=== PATIENT | female | born 1985 | race Caucasian/White ===

== ENCOUNTER 2018-07-19 00:50 | Emergency (ER) | payer SELFPAY ==
[~2018-07-19] VITALS: Ht 167.6 cm; Wt 143.8 kg
[~2018-07-19 00:50] MED LIST: FLEXERIL10 MG PO; HYDROCODONE BIT1 T11 PO; LEVAQUIN750 M1 PO; MOTRIN800 MG PO; PREDNISONE20 M1 PO; VENTOLIN H0.09 MG/AC INH; ZITHROMAX250 MG PO; ZYRTEC10 MG PO
[2018-07-19] MEDS ORDERED: LIDEX 0.05% CRE15 GM T (01:14)
== END 2018-07-19 01:26 | disposition home or self-care (01) ==
LOC: ED 00:50
PROVIDERS: Physician Assistant
DX: R21 Rash and other nonspecific skin eruption (principal); F17.200 Nicotine dependence, unspecified, uncomplicated; Z88.1 Allergy status to other antibiotic agents; Z88.0 Allergy status to penicillin; Z88.2 Allergy status to sulfonamides; Z88.8 Allergy status to other drugs, medicaments and biological substances

== ENCOUNTER 2018-12-26 16:36 | Emergency (ER) | payer BC ==
[~2018-12-26] VITALS: Ht 167.6 cm; Wt 141.1 kg
[~2018-12-26 16:36] MED LIST changes: +LIDEX 0.05% CRE15 GM T
[2018-12-26] MEDS ORDERED: ZITHROMAX250 MG PO (17:39)
[2019-01-09] MEDS ORDERED: ROBAXIN500 M1 PO (14:26)
[2019-01-09] MEDS ORDERED: PREDNISONE20 M1 PO (14:26)
== END 2018-12-26 17:50 | disposition home or self-care (01) ==
LOC: ED 16:36
DX: H92.02 Otalgia, left ear (principal); R51 Headache; J34.89 Other specified disorders of nose and nasal sinuses; K08.89 Other specified disorders of teeth and supporting structures; Z88.1 Allergy status to other antibiotic agents; Z88.0 Allergy status to penicillin; Z88.2 Allergy status to sulfonamides; Z88.6 Allergy status to analgesic agent; Z96.22 Myringotomy tube(s) status

== ENCOUNTER 2020-01-08 07:33 | Emergency (ER) | payer SELFPAY ==
[~2020-01-08 07:33] MED LIST changes: +ROBAXIN500 M1 PO
[2020-01-08] MEDS ORDERED: LEVAQUIN750 M1 PO (08:00)
== END 2020-01-08 08:03 | disposition home or self-care (01) ==
LOC: ED 07:33
DX: H66.92 Otitis media, unspecified, left ear (principal); R51 Headache; Z88.1 Allergy status to other antibiotic agents; Z88.0 Allergy status to penicillin; Z88.2 Allergy status to sulfonamides; Z88.8 Allergy status to other drugs, medicaments and biological substances; Z79.899 Other long term (current) drug therapy; Z79.2 Long term (current) use of antibiotics

== ENCOUNTER 2021-10-20 23:44 | Emergency (ER) | payer BC ==
[~2021-10-20] VITALS: Ht 167.6 cm; Wt 158.8 kg
[2021-10-21 00:21] LABS: BASO # 0.1 10*3/uL (0.0-0.1); BASO % 0.5 % (0.0-1.0); EOS # 0.3 10*3/uL (0.0-0.4); EOS % 2.6 % (1.0-4.0); HEMATOCRIT 37.5 % (37.0-47.0); LYMPH # 1.6 10*3/uL (1.3-4.4); LYMPH % 16.4 % (27.0-41.0); MEAN CELL VOLUME 85.4 fl (81.0-99.0); MEAN CORPUSCULAR HGB 28.2 pg (27.0-31.0); MEAN CORPUSCULAR HGB CONC 33.1 g/dl (33.0-37.0); MEAN PLATELET VOLUME 9.4 fl (9.6-12.3); MONO # 0.4 10*3/uL (0.1-1.0); MONO % 4.2 % (3.0-9.0); NEUT # 7.4 10*3/uL (2.3-7.9); NEUT % 76.1 % (47.0-73.0); PLATELET COUNT AUTOMATED 340 10*3/uL (130-400); RED BLOOD COUNT 4.39 10*6/uL (4.10-5.10); RED CELL DISTRI WIDTH 12.7 % (0-14.5); WHITE BLOOD COUNT 9.7 10*3/uL (4.8-10.8)
[2021-10-21 00:38] LABS: ALBUMIN 3.1 gm/dl (3.1-4.5); ALKALINE PHOSPHATASE 118 U/L (45-117); BUN 7 mg/dl (7-24); CHLORIDE 106 mmol/L (98-107); CPK 90 U/L (26-192); CREATININE 0.76 mg/dL (0.55-1.02); POTASSIUM 3.6 mmol/L (3.5-5.1); SGOT/AST 18 IU/L (3-35); SGPT/ALT 27 U/L (12-78); SODIUM 139 mmol/L (136-145); TOTAL PROTEIN 7.2 gm/dL (6.4-8.2)
[2021-10-21 01:17] LABS: BILIRUBIN Negative (Negative); BLOOD 2+ (Negative); CLARITY Clear (Clear); COLOR Yellow (Yellow); GLUCOSE Negative (Negative); KETONE Negative (Negative); LEUKO ESTERASE Negative (Negative); NITRITE Negative (Negative); PH 6.5 (4.5-8.0); SPECIFIC GRAVITY 1.015 (1.001-1.030); UROBILINOGEN 0.2 E.U./dl (0.0-1.0)
[2021-10-21 01:40] LABS: RBC 21-30 rbc/hpf (0-2)
== END 2021-10-21 02:42 | disposition home or self-care (01) ==
LOC: ED 23:44
PROVIDERS: Internal Medicine
DX: R56.9 Unspecified convulsions (principal); Z88.0 Allergy status to penicillin; Z88.1 Allergy status to other antibiotic agents; Z88.8 Allergy status to other drugs, medicaments and biological substances

== ENCOUNTER 2022-02-07 21:48 | Emergency (ER) | payer BC ==
[2022-02-07 22:37] LABS: BASO # 0.1 10*3/uL (0.0-0.1); BASO % 0.8 % (0.0-1.0); EOS # 0.3 10*3/uL (0.0-0.4); EOS % 2.9 % (1.0-4.0); HEMATOCRIT 40.7 % (37.0-47.0); LYMPH # 2.6 10*3/uL (1.3-4.4); LYMPH % 25.5 % (27.0-41.0); MEAN CELL VOLUME 86.8 fl (81.0-99.0); MEAN CORPUSCULAR HGB 28.6 pg (27.0-31.0); MEAN CORPUSCULAR HGB CONC 32.9 g/dl (33.0-37.0); MEAN PLATELET VOLUME 9.3 fl (9.6-12.3); MONO # 0.4 10*3/uL (0.1-1.0); MONO % 3.7 % (3.0-9.0); NEUT # 6.8 10*3/uL (2.3-7.9); NEUT % 66.9 % (47.0-73.0); PLATELET COUNT AUTOMATED 370 10*3/uL (130-400); RED BLOOD COUNT 4.69 10*6/uL (4.10-5.10); RED CELL DISTRI WIDTH 13.3 % (0-14.5); WHITE BLOOD COUNT 10.1 10*3/uL (4.8-10.8)
[2022-02-07 23:01] LABS: ALKALINE PHOSPHATASE 122 U/L (45-117); BUN 14 mg/dl (7-24); CHLORIDE 104 mmol/L (98-107); CREATININE 1.01 mg/dL (0.55-1.02); POTASSIUM 3.5 mmol/L (3.5-5.1); SGOT/AST 21 IU/L (3-35); SGPT/ALT 27 U/L (12-78); SODIUM 140 mmol/L (136-145); TOTAL PROTEIN 7.9 gm/dL (6.4-8.2)
[2022-02-08] MEDS ORDERED: KEPPRA250 MG PO (01:40)
[2022-02-08] MEDS ORDERED: Synthroid,Levo50 MCG PO (01:40)
== END 2022-02-08 02:08 | disposition home or self-care (01) ==
LOC: ED 21:48
PROVIDERS: Emergency Medicine
DX: R56.9 Unspecified convulsions (principal); E03.9 Hypothyroidism, unspecified; Z88.0 Allergy status to penicillin; Z88.1 Allergy status to other antibiotic agents; Z88.8 Allergy status to other drugs, medicaments and biological substances; Z90.89 Acquired absence of other organs; Z98.890 Other specified postprocedural states; F17.200 Nicotine dependence, unspecified, uncomplicated

== ENCOUNTER → 2022-02-16 | Outpatient (CLI) | payer BC ==
[~2022-02-16] MED LIST changes: +KEPPRA250 MG PO; +Synthroid,Levo50 MCG PO
== END | disposition home or self-care (01) ==
LOC: LAB 12:22
PROVIDERS: ATTEND Family Medicine
DX: R56.9 Unspecified convulsions (principal)

== ENCOUNTER 2022-05-27 22:48 | Emergency (ER) | payer BC ==
[~2022-05-27] VITALS: Ht 167.6 cm; Wt 149.7 kg
[2022-05-27] MEDS ORDERED: LEVETIRACETAM500 MG PO (22:55)
[2022-05-27] MEDS ORDERED: LEVOTHYROXINE75 MCG PO (22:55)
[2022-05-27] MEDS ORDERED: VIBRAMYCIN100 MG PO (23:04)
== END 2022-05-27 23:10 | disposition home or self-care (01) ==
LOC: ED 22:48
DX: H92.02 Otalgia, left ear (principal); R51.9 Headache, unspecified; Z88.0 Allergy status to penicillin; Z88.1 Allergy status to other antibiotic agents; Z88.8 Allergy status to other drugs, medicaments and biological substances; Z79.899 Other long term (current) drug therapy; Z90.89 Acquired absence of other organs

== ENCOUNTER → 2022-06-16 | Outpatient (CLI) | payer BC ==
[~2022-06-16] MED LIST changes: +LEVETIRACETAM500 MG PO; +LEVOTHYROXINE75 MCG PO; +VIBRAMYCIN100 MG PO
[2022-06-16 13:14] LABS: CHLORIDE 107 mmol/L (98-107); SODIUM 139 mmol/L (136-145)
[2022-06-16 13:42] LABS: ALKALINE PHOSPHATASE 109 U/L (45-117); BUN 8 mg/dl (7-24); CREATININE 0.81 mg/dL (0.55-1.02); SGOT/AST 17 IU/L (3-35); SGPT/ALT 26 U/L (12-78); TOTAL PROTEIN 7.4 gm/dL (6.4-8.2)
[2022-06-16 14:01] LABS: FREE T4 1.12 ng/dl (0.76-1.46)
== END | disposition home or self-care (01) ==
LOC: LAB 12:32
PROVIDERS: ATTEND Family Medicine
DX: E03.9 Hypothyroidism, unspecified (principal); R56.9 Unspecified convulsions

== ENCOUNTER → 2022-07-30 | Outpatient (CLI) | payer BC ==
[2022-07-30 14:03] LABS: FREE T4 1.16 ng/dl (0.76-1.46)
== END | disposition home or self-care (01) ==
LOC: LAB 11:58
PROVIDERS: ATTEND Family Medicine
DX: E03.9 Hypothyroidism, unspecified (principal)

== ENCOUNTER → 2022-09-08 | Outpatient (CLI) | payer BC ==
[2022-09-08 16:31] LABS: FREE T4 1.24 ng/dl (0.89-1.76)
== END | disposition home or self-care (01) ==
LOC: LAB 13:37
PROVIDERS: ATTEND Family Medicine
DX: E03.9 Hypothyroidism, unspecified (principal); R56.9 Unspecified convulsions

== ENCOUNTER 2022-10-20 14:19 | Emergency (ER) | payer BC ==
[~2022-10-20] VITALS: Wt 149.2 kg
== END 2022-10-20 15:00 | disposition left against medical advice (07) ==
LOC: ED 14:19
DX: T14.8XXA Other injury of unspecified body region, initial encounter (principal); Z53.21 Procedure and treatment not carried out due to patient leaving prior to being seen by health care provider

== ENCOUNTER → 2022-10-20 | Outpatient (CLI) | payer BC ==
[2022-10-20 14:37] LABS: FREE T4 1.23 ng/dl (0.89-1.76); THYROID STIM HORMONE (HS) 4.296 uIU/ml (0.550-4.780)
== END | disposition home or self-care (01) ==
LOC: LAB 13:06
PROVIDERS: ATTEND Student in an Organized Health Care Education/Training Program
DX: G40.909 Epilepsy, unspecified, not intractable, without status epilepticus (principal); E03.9 Hypothyroidism, unspecified; E55.9 Vitamin D deficiency, unspecified; Z79.899 Other long term (current) drug therapy

== ENCOUNTER 2022-12-06 22:42 | Emergency (ER) | payer BC ==
[~2022-12-06] VITALS: Ht 167.6 cm; Wt 149.7 kg
[2022-12-06] MEDS ORDERED: PREDNISONE20 M1 PO (23:21)
[2022-12-06] MEDS ORDERED: VIBRAMYCIN100 MG PO (23:21)
[2022-12-06] MEDS ORDERED: AZITHROMYCIN500 M2 PO (23:21)
== END 2022-12-06 23:37 | disposition home or self-care (01) ==
LOC: ED 22:42
DX: R60.9 Edema, unspecified (principal); K08.89 Other specified disorders of teeth and supporting structures; Z88.1 Allergy status to other antibiotic agents; Z88.0 Allergy status to penicillin; Z88.2 Allergy status to sulfonamides; Z88.8 Allergy status to other drugs, medicaments and biological substances; Z90.89 Acquired absence of other organs; Z98.890 Other specified postprocedural states

== ENCOUNTER → 2025-09-05 | Outpatient (CLI) | payer BC ==
[~2025-09-05] MED LIST changes: +AZITHROMYCIN500 M2 PO
[2025-09-05 08:53] LABS: BASO # 0.1 10*3/uL (0.0-0.1); BASO % 0.8 % (0.0-1.0); EOS # 0.4 10*3/uL (0.0-0.4); EOS % 6.2 % (1.0-4.0); MEAN CELL VOLUME 85.6 fl (81.0-99.0); MEAN CORPUSCULAR HGB 26.2 pg (27.0-31.0); MEAN PLATELET VOLUME 9.3 fl (9.6-12.3); MONO # 0.4 10*3/uL (0.1-1.0); MONO % 6.2 % (3.0-9.0); NEUT # 4.0 10*3/uL (2.3-7.9); NEUT % 61.9 % (47.0-73.0); NUCLEATED RED BLOOD CELL 0.0 % (0.0-0.0); NUCLEATED RED BLOOD CELL 0.0 10*3/uL (0.0-0.0); PLATELET COUNT AUTOMATED 334 10*3/uL (130-400); RED CELL DISTRI WIDTH 14.0 % (0-14.5)
[2025-09-05 09:21] LABS: BUN 9 mg/dl (9-23); LDL CHOLESTEROL 94 mg/dL (9-159); SGPT/ALT 24 U/L (5-49)
== END | disposition home or self-care (01) ==
LOC: LAB 08:37
PROVIDERS: Student in an Organized Health Care Education/Training Program; ATTEND Family Medicine
DX: E03.9 Hypothyroidism, unspecified (principal); Z00.00 Encounter for general adult medical examination without abnormal findings